=== PATIENT | male | born 1995 | race Caucasian/White ===

== ENCOUNTER 2020-10-14 11:17 | Emergency (ER) | payer OTHER ==
[~2020-10-14] VITALS: Ht 180.3 cm; Wt 79.6 kg
[~2020-10-14 11:17] MED LIST: NABUMETONE750 MG PO; ULTRAM50 MG PO
[2020-10-14] MEDS ORDERED: OMEPRAZOLE20 M1 PO (11:34)
[2020-10-14] MEDS ORDERED: DICYCLOMINE HCL10 MG PO (14:07)
== END 2020-10-14 14:24 | disposition home or self-care (01) ==
LOC: ED 11:17
DX: A09 Infectious gastroenteritis and colitis, unspecified (principal); Z87.891 Personal history of nicotine dependence; Z79.899 Other long term (current) drug therapy; F43.10 Post-traumatic stress disorder, unspecified
CPT/HCPCS: 74177; 80053; 81001; 83690; 83735; 85025; 99284-25; J1885; J7030; Q9967